=== PATIENT | female | born 1955 | race Caucasian/White ===

== ENCOUNTER 2016-10-26 11:49 | Day surgery (SDC) | payer MEDICAID, OTHER ==
[~2016-10-26] VITALS: Ht 152.4 cm; Wt 135.1 kg
[2016-10-26 12:29] VITALS: Ht 152.4 cm; Wt 135.1 kg
[2016-10-26] MEDS ORDERED: VALSARTAN (13:30)
[2016-10-26] MEDS ORDERED: METFORMIN (13:30)
[2016-10-26] MEDS ORDERED: METOPROLOL (13:30)
[2016-10-26] MEDS ORDERED: CLONIDINE (13:30)
[2016-10-26] MEDS ORDERED: LANSOPRAZOLE (13:30)
[2016-10-26] MEDS ORDERED: VITAMIN D3 (13:30)
[2016-10-26] MEDS ORDERED: ANASTROZOLE (13:30)
[2016-10-26] MEDS ORDERED: SLOW-MAG (13:30)
[2016-10-26] MEDS ORDERED: ATORVASTATIN (13:30)
[2016-10-26] MEDS ORDERED: ASPIRIN (13:30)
[2016-10-26] MEDS ORDERED: OMEGA 3 (13:30)
[2016-10-26] MEDS ORDERED: IBUPROFEN (13:30)
[2016-10-26 13:55] VITALS: BP 218/99; PULSE 90; RESP 18
[2016-10-26 15:03] VITALS: BP 171/67; RESP 20
--- NOTE | 2016-10-26 22:19 | GILP ---
DATE OF PROCEDURE: 10/26/2016 NAME OF PROCEDURE: Colonoscopy to cecum. SURGEON: Dulce Kent MD PREMEDICATION: Monitored anesthesia care by anesthesiologist. INSTRUMENT USED: Olympus colonoscope. PREPARATION: Adequate. TECHNIQUE: After informed consent, with the patient/relatives understanding the procedure, its paulo cations potential risks and complications, including but not limited to allergic reaction, bleeding, perforation, infection, missed lesions and after all pertinent questions were answered to the patie nt's satisfaction, the patient/relatives signed the witnessed informed consent. Following this, premedication was administered slowly IV push by under careful cardiovascular and re spiratory monitoring with pulse oximetry, automatic blood pressure and classroom monitor. Once the sedativ e effect was achieved, the patient was placed in the left lateral decubitus position, digital rectal examination was performed. The colonoscope was then introduced and advanced under visual control th roughout all segments of the colon including the rectum, sigmoid, descending colon, splenic flexure, transverse colon, hepatic flexure, ascending colon and finally reaching the cecum which was clearly identified by transillumination, finger indentation and the ileocecal valve. Careful examination of the mucosa of the lower gastrointestinal tract both on insertion as well as withdrawal of the instr ument disclosed the following findings: Rectal Examination: No evidence of perirectal disease, no masses. Colonic Mucosa: The colonic mucosa shows normal-appearing mucosa throughout. The ileocecal valve w as clearly identified and appears unremarkable. The instrument was withdrawn, re-examining the muco sa in detail. No additional abnormalities are noted with exception of moderate-sized internal hemor rhoids. The instrument was then withdrawn. The patient tolerated the procedure well and was transferred out of the endoscopy suite awake and in good condition to continue recovery under observation. IMPRESSION: 1. Normal colonic mucosa to cecum. 2. Moderate-sized internal hemorrhoids. PLAN: The patient will be followed up as an outpatient. Annual Hemoccult stool testing is recommen ded, and screening colonoscopy in 10 years is recommended. Dictated By: DULCE COOPER Conf#: [id number] DID#: [id number]
== END 2016-10-26 19:52 | disposition home or self-care (01) ==
LOC: SDS 11:49 → GIL 11:49
PROVIDERS: ATTEND Internal Medicine Gastroenterology
DX: Z12.11 Encounter for screening for malignant neoplasm of colon (principal); E11.9 Type 2 diabetes mellitus without complications; I10 Essential (primary) hypertension; E66.01 Morbid (severe) obesity due to excess calories; Z68.43 Body mass index [BMI] 50.0-59.9, adult
CPT/HCPCS: 45378; Z7610